=== PATIENT | female | born 1980 | race Caucasian/White ===

== ENCOUNTER 2017-12-29 08:15 | Inpatient (IN) | payer MEDICAID ==
[2017-12-21 14:28] LABS: BASOPHILS # (AUTO) 0.1 X10'3 (0-0.2); BASOPHILS % (AUTO) 0.8 % (0-1); EOSINOPHILS # (AUTO) 0.2 X10'3 (0-0.9); EOSINOPHILS % (AUTO) 2.6 % (0-6); LYMPHOCYTES # (AUTO) 2.6 X10'3 (1.1-4.8); LYMPHOCYTES % (AUTO) 34.6 % (21-51); MEAN CORPUSCULAR HEMOGLOBIN 32.3 PG (27.0-31.0); MEAN CORPUSCULAR HGB CONC 34.6 % (33.0-36.5); MEAN CORPUSCULAR VOLUME 93.2 FL (78-98); MEAN PLATELET VOLUME 8.7 FL (7.4-10.4); MONOCYTES # (AUTO) 0.5 X10'3 (0-0.9); MONOCYTES % (AUTO) 6.2 % (2-12); NEUTROPHILS # (AUTO) 4.2 X10'3 (1.8-7.7); NEUTROPHILS % (AUTO) 55.8 % (42-75); PRE OP HEMATOCRIT 40.3 % (35.0-45.0); PRE OP PLATELET COUNT 277 X10'3 (140-440); RED BLOOD COUNT 4.33 X10'6 (4.20-5.60); RED CELL DISTRIBUTION WIDTH 14.3 % (11.5-14.5)
[2017-12-21 14:43] LABS: ALBUMIN 3.6 G/DL (3.4-5.0); ALBUMIN/GLOBULIN RATIO 0.9 (1.1-1.5); ALKALINE PHOSPHATASE 71 IU/L (46-116); BLOOD UREA NITROGEN 7 MG/DL (7-18); BUN/CREATININE RATIO 9.3 (6.6-38.0); CHLORIDE 106 MMOL/L (99-107); CREATININE 0.75 MG/DL (0.40-0.90); PRE OP ALT 26 U/L (30-65); PRE OP ANION GAP 9 (8-16); PRE OP AST 16 U/L (10-37); PRE OP BILIRUB, TOTAL 0.4 MG/DL (0.0-1.0); PRE OP GLUCOSE 75 MG/DL (70-104); PRE OP POTASSIUM 3.7 MMOL/L (3.4-5.1); PRE OP SODIUM 142 MMOL/L (135-145); TOTAL PROTEIN 7.4 G/DL (6.4-8.2); eGFR 87 ML/MIN
[2017-12-21 14:52] LABS: HCG SERUM QL NEGATIVE
[2017-12-29] VITALS (15 sets, daily range): BP systolic 103–116; BP diastolic 54–77
[~2017-12-29] VITALS: Ht 165.1 cm; Wt 83.9 kg
[~2017-12-29 08:15] MED LIST: NO HOME MEDS; cefazolin/dext.iso 2gm/50ml 50 ML IV ONE; clindamycin-Cleocin 900mg/D5W 50 ML IV ONE; famotidine 20mg tablet PO ONE; ringers solution, lacted 1,000 ML IV SCH
[2017-12-29] MEDS ORDERED: ketorolac trometh. 30mg/ml inj. ONE (14:16)
[2017-12-29] MEDS ORDERED: vancomycin 1,000mg inj ONE ×2 (14:16→16:11)
[2017-12-29] MEDS ORDERED: BUPIVAcaine 0.5% inj/PF 30 ml vial ONE ×2 (14:19→15:11)
[2017-12-29] MEDS ORDERED: SODIUM CHLORIDE IV ONE (14:40)
[2017-12-29] MEDS ORDERED: [UNRECOGNIZED DRUG - OTHER] IV ONE (14:40)
[2017-12-29] MEDS ORDERED: TRANEXAMIC ACID IV ONE (14:40)
[2017-12-29] MEDS ORDERED: midazolam 2 mg/2 ml injection ONE ×2 (15:06)
[2017-12-29] MEDS ORDERED: fentaNYL/PF 50MCG/1 ML 2ML syringe ONE ×2 (15:06→18:09)
[2017-12-29] MEDS ORDERED: BUPIVAcaine/PF 2.5 mg/ml (0.25%) 30ml vial ONE (15:11)
[2017-12-29] MEDS ORDERED: epiNEPHrine 1 mg/ml inj ONE (15:14)
[2017-12-29] MEDS ORDERED: propofol inj 20 ML IV ONE (15:14)
[2017-12-29] MEDS ORDERED: LIDOcaine 2% (20mg/ml) 5ml vial ONE (15:14)
[2017-12-29] MEDS ORDERED: rocuronium 10mg/ml inj IV ONE (15:14)
[2017-12-29 17:48] LABS: APPEARANCE,SYNOVIAL FLUID HAZY; COLOR,SYNOVIAL FLUID YELLOW; SYN RBC 1600 /CU MM (0); SYN WBC 750 /CU MM (0-200)
[2017-12-29] MEDS ORDERED: tranexamic acid inj. 840 MG in normal saline 100ml IV soln 91.6 ML IV ONE (18:00)
[2017-12-29] MEDS ORDERED: tranexamic acid inj. 840 MG in normal saline 100ml IV soln 100 ML IV ONE ×2 (18:05→21:30)
[2017-12-29] MEDS ORDERED: acetaminophen 325mg tablet PO PRN (18:10)
[2017-12-29] MEDS ORDERED: bisacodyl 10mg suppository rectal RC PRN (18:10)
[2017-12-29] MEDS ORDERED: ondansetron/PF 4mg/2ml inj IV PRN ×2 (18:10→18:45)
[2017-12-29] MEDS ORDERED: HYDROmorphone inj. 0.5 MG/0.5 ML DISP.SYRIN IV PRN ×2 (18:10)
[2017-12-29] MEDS ORDERED: magnesium hydroxide 30ml (MOM) UD suspension PO PRN (18:10)
[2017-12-29] MEDS ORDERED: diphenhydrAMINE 25mg capsule PO PRN ×2 (18:10)
[2017-12-29] MEDS ORDERED: oxyCODONE IR 5mg (immed. release) tablet PO PRN ×2 (18:10)
[2017-12-29] MEDS ORDERED: ondansetron/PF 4mg/2ml inj ONE (18:12)
[2017-12-29] MEDS ORDERED: glycopyrrolate 0.2mg/ml inj ONE (18:12)
[2017-12-29] MEDS ORDERED: neostigmine methylsulfate 1 MG/ML 10ml vial ONE (18:12)
[2017-12-29] MEDS ORDERED: dexamethasone sod phosphate 4mg/ml inj. ONE (18:12)
[2017-12-29] MEDS ORDERED: morphine 4 MG/ML inj SYRINge IV PRN ×2 (18:45)
[2017-12-29] MEDS ORDERED: ringers solution, lacted 1,000 ML IV SCH (18:45)
[2017-12-29] MEDS ORDERED: meperidine/PF 50mg/ml syringe IV PRN ×3 (18:45)
[2017-12-29] MEDS ORDERED: proCHLORperazine 10 MG/2 ml inj IV PRN (18:45)
[2017-12-29] MEDS ORDERED: vancomycin/NS 1 GM ADD-VANTAGE 250 ML IV SCH (20:00)
[2017-12-29] MEDS ORDERED: morphine 2 MG/ML inj. syringe IV PRN ×2 (20:35)
[2017-12-29] MEDS: gabapentin 300mg capsule PO SCH (20:50)
[2017-12-29] MEDS: ketorolac tromethamine 15mg/ml inj. IV SCH (20:52)
[2017-12-29] MEDS: acetaminophen 325mg tablet PO SCH (20:52)
[2017-12-29] MEDS ORDERED: sennosides 8.6mg tablet PO SCH (21:00)
[2017-12-29] MEDS: cefazolin 1gm/NS 100mL 100 ML IV SCH (23:53)
[2017-12-29] MEDS: potassium cl 20mEq in 1/2 NS 1,000 ML IV SCH (23:53)
[2017-12-30 02:00] VITALS: BP 103/50
[2017-12-30] MEDS: ketorolac tromethamine 15mg/ml inj. IV SCH ×2 (02:08→07:55)
[2017-12-30] MEDS: potassium cl 20mEq in 1/2 NS 1,000 ML IV SCH (02:10)
[2017-12-30] MEDS: acetaminophen 325mg tablet PO SCH ×3 (02:10→13:15)
[2017-12-30] MEDS ORDERED: vancomycin/NS 1 GM ADD-VANTAGE 250 ML IV SCH ×2 (05:00→06:00)
[2017-12-30 06:00] VITALS: BP 99/61
[2017-12-30 06:20] LABS: BASOPHILS % (AUTO) 0.3 % (0-1); EOSINOPHILS % (AUTO) 0.1 % (0-6); HEMATOCRIT 35.5 % (35.0-45.0); HEMOGLOBIN 12.5 g/dl (12.0-16.0); LYMPHOCYTES # (AUTO) 1.3 X10'3 (1.1-4.8); MEAN CORPUSCULAR HEMOGLOBIN 32.6 PG (27.0-31.0); MEAN CORPUSCULAR HGB CONC 35.2 % (33.0-36.5); MEAN CORPUSCULAR VOLUME 92.6 FL (78-98); MEAN PLATELET VOLUME 9.1 FL (7.4-10.4); MONOCYTES # (AUTO) 0.5 X10'3 (0-0.9); MONOCYTES % (AUTO) 3.8 % (2-12); NEUTROPHILS # (AUTO) 10.8 X10'3 (1.8-7.7); NEUTROPHILS % (AUTO) 85.8 % (42-75); PLATELET COUNT 230 X10'3 (140-440); RED BLOOD COUNT 3.84 X10'6 (4.20-5.60); RED CELL DISTRIBUTION WIDTH 14.4 % (11.5-14.5); WHITE BLOOD COUNT 12.6 X10'3 (4.5-11.0)
[2017-12-30 06:37] LABS: ANION GAP 9 (8-16); CHLORIDE 109 MMOL/L (99-107); POTASSIUM 4.5 MMOL/L (3.5-5.1); SODIUM 142 MMOL/L (135-145); TOTAL CARBON DIOXIDE 24.3 MMOL/L (24-32)
[2017-12-30] MEDS: gabapentin 300mg capsule PO SCH ×2 (07:55→13:15)
[2017-12-30] MEDS: cefazolin 1gm/NS 100mL 100 ML IV SCH (07:55)
[2017-12-30] MEDS ORDERED: aspirin 325mg tablet PO SCH (08:30)
[2017-12-30 10:00] VITALS: BP 102/51
[2017-12-30] MEDS ORDERED: ASPI-1 PO (11:00)
[2017-12-31] MEDS ORDERED: acetaminophen 325mg tablet PO PRN (18:10)
[2017-12-31] MEDS ORDERED: celeCOXIB 100mg capsule PO SCH (20:00)
== END 2017-12-30 13:15 | disposition home or self-care (01) | DRG 322 ==
LOC: PAS IN 08:15 → EDSTATUS 13:00 → ORTHO 4S 19:40
PROVIDERS: ADMIT Orthopaedic Surgery; ATTEND Orthopaedic Surgery
PROC: 0RPJ0JZ Removal of Synthetic Substitute from Right Shoulder Joint, Open Approach (ICD-10-PCS; 2017-12-29)
PROC: 3E0T3BZ Introduction of Anesthetic Agent into Peripheral Nerves and Plexi, Percutaneous Approach (ICD-10-PCS; 2017-12-29)
PROC: 0RRJ0JZ Replacement of Right Shoulder Joint with Synthetic Substitute, Open Approach (ICD-10-PCS; principal; 2017-12-29 15:26)
DX: T84.098A Other mechanical complication of other internal joint prosthesis, initial encounter (principal); F17.210 Nicotine dependence, cigarettes, uncomplicated; Y83.1 Surgical operation with implant of artificial internal device as the cause of abnormal reaction of the patient, or of later complication, without mention of misadventure at the time of the procedure; Z88.1 Allergy status to other antibiotic agents; Z79.899 Other long term (current) drug therapy; Z79.82 Long term (current) use of aspirin; Y92.89 Other specified places as the place of occurrence of the external cause
CPT/HCPCS: 36415; 80051; 80053; 84703; 85025; 86885; 86900; 86901; 87070; 87075; 89051; 97110; 97116; 97161; J0171; J0690; J1100; J1885; J2001; J2175; J2250; J2405; J2704; J2710; J3010; J3370; J3490; J7030; J7120